=== PATIENT | female | born 1945 | race Hispanic/Latino ===

== ENCOUNTER 2022-08-07 20:59 | Emergency (ER) | payer MEDICARE ==
[~2022-08-07] VITALS: Ht 157.5 cm; Wt 86.2 kg
[2022-08-07] MEDS ORDERED: PROPRANOLOL HCL60 M1 PO (22:24)
[2022-08-07] MEDS ORDERED: LIPITOR40 MG PO (22:25)
[2022-08-07] MEDS ORDERED: LOSARTAN POTASS25 MG PO (22:25)
[2022-08-07 22:33] VITALS: BP 135/55
--- NOTE | 2022-08-08 07:26 | EKG ---
[facility] [address] [place], [place] [address] Signed Normal sinus rhythm Normal ECG No previous ECGs available Confirmed by ANGELES WILD MD ([id number] on 08/08/2022 7:26:50 AM Electronically Signed By: ANGELES WILD MD 08/08/22725 PATIENT NAME: LAURA BRYANLUPE Electrocardiogram DATE OF : 43 PHYSICIAN: ANGELES WILD MD REPORT #: [id number] REPORT IS CONFIDENTIAL AND NOT TO BE RELEASED WITHOUT AUTHORIZATION
== END 2022-08-07 22:34 | disposition home or self-care (01) ==
LOC: ED 20:59
DX: R42 Dizziness and giddiness (principal); I10 Essential (primary) hypertension; E78.5 Hyperlipidemia, unspecified; Z79.899 Other long term (current) drug therapy; Z96.651 Presence of right artificial knee joint
CPT/HCPCS: 36415; 80048; 80053; 81001; 83735; 84484; 85025; 93005; 93010; A9270